=== PATIENT | female | born 2000 | race Caucasian/White ===

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

== ENCOUNTER → 2019-01-24 | Outpatient (CLI) | payer OTHER ==
--- NOTE | 2019-01-24 15:33 | Diagnostic Imaging Report ---
INDICATION: Fracture followup and pain. Time of exam 2:35 p.m. COMPARISON: Correlation is made with prior radiographs from 12/05/2018. FINDINGS: Two views of the left tibia and fibula were obtained. Alignment at the knee and ankle appears normal. Tibia and fibula appear to be intact. No fractures are identified. IMPRESSION: No acute bony abnormality is detected. Dictated by: Dictated on workstation # [id number]
== END ==
LOC: RAD FS 14:27
PROVIDERS: ATTEND Nurse Practitioner
DX: M84.362D Stress fracture, left tibia, subsequent encounter for fracture with routine healing (principal)
CPT/HCPCS: 73590

== ENCOUNTER → 2019-04-04 | Outpatient (CLI) | payer OTHER ==
--- NOTE | 2019-04-04 11:47 | Diagnostic Imaging Report ---
Left tibia and fibula at 9:31 a.m. INDICATION: Prior stress fracture. FINDINGS: AP and lateral views were obtained. The previous left tibia and fibula exam performed on 01/24/2019 failed to show any sign of an acute bony abnormality. On this study there is still no fracture, dislocation or acute bony abnormality evident. The knee and ankle joints are well maintained. The soft tissues are unremarkable. IMPRESSION: 1. There is no evidence for an acute bony abnormality. 2. If clinical concern regarding a stress type injury persists, then either a nuclear medicine bone scan or preferably, MRI would be recommended. Dictated by: Dictated on workstation # [id number]
== END ==
LOC: RAD FS 09:19
PROVIDERS: ATTEND Nurse Practitioner
DX: M79.605 Pain in left leg (principal); Z87.312 Personal history of (healed) stress fracture
CPT/HCPCS: 73590

== ENCOUNTER → 2019-05-18 | Outpatient (CLI) | payer OTHER ==
[2019-05-18 14:33] LABS: BASOPHILS % (AUTO) 0 % (0-10); EOSINOPHILS # (AUTO) 0.1 10^3/uL (0.0-0.3); EOSINOPHILS % (AUTO) 1 % (0-10); HEMATOCRIT 40 % (35-52); HEMOGLOBIN 13.1 G/DL (11.5-16.0); LYMPHOCYTES # (AUTO) 2.6 X 10^3 (1.0-4.0); LYMPHOCYTES % (AUTO) 36 % (12-44); MEAN CORPUSCULAR HEMOGLOBIN 31 PG (25-34); MEAN CORPUSCULAR HGB CONC 33 G/DL (32-36); MEAN CORPUSCULAR VOLUME 92 FL (80-99); MONOCYTES # (AUTO) 0.5 X 10^3 (0.0-1.0); MONOCYTES % (AUTO) 7 % (0-12); NEUTROPHILS # (AUTO) 4.1 X 10^3 (1.8-7.8); NEUTROPHILS % (AUTO) 56 % (42-75); PLATELET COUNT 146 10^3/uL (130-400); WHITE BLOOD COUNT 7.3 10^3/uL (4.3-11.0)
== END ==
LOC: LAB 14:24
PROVIDERS: ATTEND Pediatrics
DX: R53.83 Other fatigue (principal)
CPT/HCPCS: 36415; 82728; 85025